=== PATIENT | male | born 1995 | race Caucasian/White ===

== ENCOUNTER → 2017-01-15 | Outpatient (CLI) | payer BC ==
[~2017-01-15] MED LIST: SINCALIDE (KINEVAC) 5 MCG ONE
== END | disposition home or self-care (01) ==
LOC: PETCFH 13:50
PROVIDERS: ATTEND Internal Medicine
DX: K82.8 Other specified diseases of gallbladder (principal)
CPT/HCPCS: 78227; A9537; J2805

== ENCOUNTER → 2017-01-20 | Outpatient (CLI) | payer BC | END | disposition home or self-care (01) | LOC: PETCFH 11:04 | PROVIDERS: ATTEND Internal Medicine | DX: R63.4 Abnormal weight loss (principal); R10.9 Unspecified abdominal pain; R10.13 Epigastric pain | CPT/HCPCS: 78264; A9541 ==